=== PATIENT | female | born 1980 | race Caucasian/White ===

== ENCOUNTER 2017-02-22 11:35 | Emergency (ER) | payer OTHER ==
[~2017-02-22] VITALS: Ht 160 cm; Wt 66.0 kg
[~2017-02-22 11:35] MED LIST: AMOXICILLIN PO
[2017-02-22 11:55] VITALS: Ht 160 cm; Wt 66.0 kg
[2017-02-22] MEDS ORDERED: ONDANSETRON (ODT) 4 MG TAB ODT STA (13:03)
[2017-02-22] MEDS ORDERED: ELEC100080 PO (13:05)
[2017-02-22] MEDS ORDERED: ONDA4TAB14 PO (13:05)
[2017-02-22] MEDS ORDERED: PRED20TA PO (13:05)
[2017-02-22] MEDS ORDERED: BEN25 PO (13:06)
[2017-02-22] MEDS ORDERED: HC30CR25 TOP (13:06)
[2017-02-22] MEDS ORDERED: CETI10CA PO (13:07)
--- NOTE | 2017-02-22 13:34 | ERD ---
ER Documentation Chief Complaint Date/Time DATE: 02/22/17 TIME: 13:31 Chief Complaint rash, n/v/d; symptoms started yesterday HPI Patient is a 37-year-old female with no past medical history who presents to the ED with rash 1 day and nonbloody nonbilious emesis once yesterday. She also states that she had an episode of diarrhea, nonblack non-bloody non-tarry diarrhea. Denies abdominal pain. Denies fever or chills. Denies headache, neck pain or neck stiffness. Denies change in travel or recent food change or change in hygiene products. She states that the rashes on her arms and abdomen and back and states that it is itchy but not painful. She has not tried any medication for her symptoms. She states that she took Tylenol yesterday which helped. She does have an appetite and has eaten today. She has no other complaints. ROS All systems reviewed and are negative except as per history of present illness. Medications Home Meds Active Scripts Cetirizine Hcl* (Zyrtec*) 10 Mg Capsule, 10 MG PO DAILY, #20 TAB.CHEW Prov:JANET CAMPOVERDE PA-C 02/22/17 Diphenhydramine Hcl* (Benadryl*) 25 Mg Cap, 25 MG PO Q6, #30 CAP Prov:JANET CAMPOVERDE-Karl 02/22/17 Hydrocortisone* Topical (Hydrocortisone* Topical) 2.5%-28.3 Gm Cream..g., 1 APPLIC TOP BID, #2 TUB Prov:JANET CAMPOVERDE PA-C 02/22/17 Electrolyte,Oral (Pedialyte) 1,000 Ml Solution, 100 ML PO Q6 Y for VOMITTING for 14 Days, ML Prov:JANET CAMPOVERDE-C 02/22/17 Ondansetron (Ondansetron Odt) 4 Mg Tab.rapdis, 4 MG PO Q6H Y for NAUSEA AND/OR VOMITING, #10 TAB Prov:JANET CAMPOVERDE-C 02/22/17 Prednisone* (Prednisone*) 20 Mg Tab, 40 MG PO DAILY for 4 Days, TAB Prov:JANET CAMPOVERDE-C 02/22/17 Reported Medications [Amoxicillin] No Conflict Check, PO 12/12/15 Allergies Allergies: Coded Allergies: No Known Drug Allergies (Verified Allergy, Mild, 06/28/15) PMhx/Soc Medical and Surgical Hx: pt denies Medical Hx, pt denies Surgical Hx History of Surgery: No Anesthesia Reaction: No Hx Neurological Disorder: No Hx Respiratory Disorders: No Hx Cardiac Disorders: No Hx Psychiatric Problems: No Hx Miscellaneous Medical Probl: No Hx Alcohol Use: Yes (OCCASIONAL) Hx Substance Use: No Hx Tobacco Use: Yes Smoking Status: Never smoker FmHx Family History: No coronary disease, No diabetes, No other Physical Exam Vitals Vital Signs Date Time Temp Pulse Resp B/P Pulse Ox O2 Delivery O2 Flow Rate FiO2 02/22/17 11:55 98.3 61 18 98/57 98 Physical Exam GENERAL: Well-developed, well-nourished female. Appears in no acute distress. Speaking in full sentences. HEAD: Normocephalic, atraumatic. EYES: Pupils are equally reactive bilaterally. EOMs grossly intact. No conjunctival erythema. ENT: Moist mucous membranes. No uvula deviation. No kissing tonsils. No exudates. NECK: Supple. No lymphadenopathy or thyromegaly. No meningismus. negative kernig. negative brudinski. LUNG: Clear to auscultation bilaterally. No rhonchi, wheezing, rales or coarse breath sounds. HEART: Regular rate and rhythm. No murmurs, rubs or gallops. ABDOMEN: No scars, ecchymosis or rashes noted. Soft, nontender, and nondistended. Positive bowel sounds in all four quadrants. No rebound tenderness , no guarding. (-) McBurneys point tenderness. No CVA tenderness. BACK: No midline tenderness. Extremities: Equal pulses bilaterally. No peripheral clubbing, cyanosis or edema. No unilateral leg swelling. NEUROLOGIC: Alert and oriented. Moving all four extremities. 5/5 strength in all extremities. Normal speech. Steady gait. SKIN: Normal color. Warm and dry. Erythematous macular blanchable rash on arms , legs, abdomen and back. Capillary refill < 2 seconds Results 24 hrs Current Medications Medications (Trade) Dose Ordered Sig/Mally Route PRN Reason Start Time Stop Time Status Last Admin Dose Admin Ondansetron HCl (Zofran Odt) 4 mg ONCE STAT ODT 02/22/17 13:03 02/22/17 13:06 DC 02/22/17 13:12 Procedures/MDM ER COURSE: I kept the patient and/or family informed of laboratory and diagnostic imaging results throughout the emergency room course. MEDICATIONS Zofran. Negative test. P.o. challenge past. MEDICAL DECISION MAKING: This is a 37-year-old female who presents with rash, nausea, vomiting and diarrhea 1 day. Vital signs were reviewed. Patient is afebrile. Patient is not hypoxic. Patient is not toxic or ill-appearing. Patient vomiting and diarrhea is likely viral in etiology. Her rash looks of viral versus allergic. At this point I do not think further blood work or CT scan is warranted. Risks outweigh the benefits and patient does not have abdominal pain. Patient is not vomiting. I did explain to patient the plan, patient agreed and did not want further testing done. Low suspicion for necrotizing fasciitis, SJS, toxic epidermal necrolysis, Kawasaki, erythema multiforme, gangrene, scarlet fever, meningococcemia, sepsis, anaphylaxis, sepsis, deep space infection, or foreign body. Low suspicion for ACS, AAA, perforated ulcer, bowel obstruction, cholecystitis, choledocholithiasis, cholangitis, pancreatitis, hepatic abscess, appendicitis, diverticulitis, gastroenteritis, hepatitis, peptic ulcer disease, HELLP syndrome. DISCHARGE: At this time, patient is stable for discharge and outpatient management with no new complaints during the ER course. Patient was sent home with Zyrtec, Benadryl , hydrocortisone, Pedialyte, Zofran and prednisone and to have close follow-up and return in 8-12 hours for recheck.. Patient will be discharged home with instructions to recheck for new or worsening symptoms such as fever, nausea, weakness, LOC and to follow up with primary care in the next 1-2 days. Patient was advised to return to the ER for any new or worsening symptoms. Plan was discussed and patient and/or family understands and agrees. Home instructions were given. Departure Diagnosis: Primary Impression: Vomiting and diarrhea Additional Impression: Rash Condition: Stable Patient Instructions: Self-Care for Vomiting and Diarrhea Additional Instructions: Llame al doctor MAANA y mabel zhen NEIL PARA DENTRO DE 1-2 ENCISO.Dgale a la secretaria que nosotros le instruimos hacer esta neil.Avise o llame si guerrero condicin se empeora antes de la neil. Regresa aqui si peor o no mejor. JANET CAMPOVERDE PA-C February 22, 2017 13:34
== END 2017-02-22 13:44 | disposition home or self-care (01) ==
LOC: FTE 11:35
DX: R11.10 Vomiting, unspecified (principal); R19.7 Diarrhea, unspecified
CPT/HCPCS: Z7502; Z7610; 99284